=== PATIENT | male | born 1965 | race Caucasian/White ===

== ENCOUNTER 2023-12-07 23:38 | Emergency (ER) | payer OTHER, SELFPAY ==
--- NOTE | 2023-12-07 | ECG_ITS ---
Test Reason : FALL Blood Pressure : / mmHG Vent. Rate : 087 BPM Atrial Rate : 087 BPM P-R Int : 174 ms QRS Dur : 100 ms QT Int : 374 ms P-R-T Axes : 058 035 061 degrees QTc Int : 450 ms Normal sinus rhythm Possible Lateral infarct , age undetermined Abnormal ECG No previous ECGs available Referred By: Generic ED Physician Electronically Signed By:Salomon Choi
--- NOTE | ~2023-12-07 | CT_ITS ---
EXAMINATION: CT HEAD WITHOUT CONTRAST CT CERVICAL SPINE WITHOUT CONTRAST CLINICAL INFORMATION: Trauma. Pain. COMPARISON: None available. TECHNIQUE: Contiguous axial imaging was performed through the head and cervical spine without intravenous administration of contrast. Sagittal and coronal reformatted images also obtained. This CT examination was performed using dose optimization techniques as appropriate, variously including the following: *Automated exposure control *Adjustment of mA and/or kV according to patient size (this includes techniques or standardized protocols for targeted exams where dose is matched to indication/reason for exam; i.e. extremities or head) *Use of iterative reconstruction technique DLP: 1246 mGy-cm FINDINGS: The lateral, third and fourth ventricles are normally outlined. The cortical sulci are normally outlined as well. The fourth ventricle and basal cisterns are normally outlined. There is no acute territorial defect, hemorrhage or midline shift. The extra-axial spaces are unremarkable. Calvarium/scalp: Intact. Maxillofacial sinuses and mastoids: There is near-complete opacification of the frontal and the ethmoid sinuses. There are lobular opacities of the maxillary sinuses as well as the sphenoid sinus. The mastoids are clear. Cervical spine: The alignment is normal. There is mild diffuse cervical disc degenerative change with loss of disc space, endplate change and posterior osteophytes associated with mild facet osteoarthritic hypertrophic change with multilevel minimal spinal canal narrowing and moderate right C6-C7 neuroforaminal narrowing and mild neuroforaminal narrowing at the remaining levels. No fracture is seen. The soft tissues are unremarkable. The visualized upper lung carpenter are clear. CT/CT cervical spine wo IV con IMPRESSION: CT HEAD: No acute intracranial abnormality. Sinus disease which appears chronic. CT CERVICAL SPINE: No evidence of acute cervical injury. Mild cervical spondylosis.
[2023-12-07 23:47] VITALS: BP 120/66; BP 128/72; PULSE 90; PULSE 94; RESP 14; TEMP 37.1; O2SAT 94; BMI 38.6
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
[2023-12-08] MEDS: Acetaminophen 325 MG TABLET 975 MG PO (01:52)
[2023-12-08] MEDS: Bacitracin Oint 0.9 GM PACKET 1 APPL TOPICAL (01:52)
--- NOTE | 2023-12-08 01:54 | PC.NURSE ---
pt medicated per sep, tolerated well with water. bacitracin applied to right knee with large bandaid.
[2023-12-08 02:00] VITALS: BP 126/78; PULSE 80; RESP 16; TEMP 36.9; O2SAT 99
[2023-12-08] MEDS: Diphth,Pertus(ACell),Tet Adult 0.5 ML SYRINGE IM (04:17)
[2023-12-08 04:20] VITALS: BP 110/66; PULSE 80; RESP 16; TEMP 36.6; O2SAT 97
[2023-12-08 04:21] VITALS: BP 110/66; PULSE 80; RESP 16; TEMP 36.6; O2SAT 97
== END 2023-12-08 04:21 | disposition home or self-care (01) ==
PROVIDERS: Emergency Provider Emergency Medicine Emergency Medical Services
DX: S09.90XA Unspecified injury of head, initial encounter (principal); S80.211A Abrasion, right knee, initial encounter; V09.9XXA Pedestrian injured in unspecified transport accident, initial encounter; Y93.9 Activity, unspecified; Y92.410 Unspecified street and highway as the place of occurrence of the external cause; Y99.9 Unspecified external cause status
CPT/HCPCS: 70450; 72125; 90471; 90715; 93005; 99284; 99285

== ENCOUNTER → 2023-12-07 | Outpatient (BNV) | payer OTHER, SELFPAY | PROVIDERS: Emergency Provider Emergency Medicine Emergency Medical Services; Visit Provider Internal Medicine Cardiovascular Disease | DX: R94.31 Abnormal electrocardiogram [ECG] [EKG] (principal) | CPT/HCPCS: 93010 ==